=== PATIENT | male | born 1985 | race Caucasian/White ===

== ENCOUNTER 2022-01-06 22:55 | Emergency (ER) | payer BC, MEDICAID, SELFPAY ==
[2022-01-06 23:05] VITALS: BP 173/92; PULSE 75; RESP 20; TEMP 37.2; O2SAT 93
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
[2022-01-06] MEDS: ondansetron 2 mg/ML SDV 2 mL 4 MG IVP (23:53)
[2022-01-06] MEDS: HYDROmorphone 1 mg/mL INJ 1 mL IVP (23:53)
--- NOTE | 2022-01-06 23:54 | PC.NURSE ---
medications given IM per order
[2022-01-07] VITALS: BP 164/82; PULSE 92; RESP 20; O2SAT 98
[2022-01-07] MEDS: ketorolac 30 mg/mL INJ IM (00:23)
== END 2022-01-07 00:45 | disposition home or self-care (01) ==
PROVIDERS: Emergency Provider Emergency Medicine
DX: R51.9 Headache, unspecified (principal)
CPT/HCPCS: 70450; 72125; 96372; 96374; 96375; 99284; J1170; J1885; J2405